=== PATIENT | female | born 1970 | race American Indian/Alaskan Native ===

== ENCOUNTER 2017-08-04 10:37 | Observation (INO) | payer MEDICARE, MEDICAID ==
[~2017-08-04] VITALS: Ht 165.1 cm; Wt 140.0 kg
[~2017-08-04 10:37] MED LIST: IBUP-1985 PO; NITR100C6 PO; ONDA4TAB6 PO
[2017-08-04] MEDS ORDERED: normal saline 1000ML IV soln IVB ONE ×2 (11:00→12:45)
[2017-08-04 11:23] LABS: BASOPHILS % (AUTO) 0.1 % (0-1); EOSINOPHILS # (AUTO) 0.1 X10'3 (0-0.9); EOSINOPHILS % (AUTO) 1.3 % (0-6); HEMATOCRIT 40.1 % (35.0-45.0); HEMOGLOBIN 13.8 g/dl (12.0-16.0); LYMPHOCYTES # (AUTO) 1.2 X10'3 (1.1-4.8); LYMPHOCYTES % (AUTO) 15.8 % (21-51); MEAN CORPUSCULAR HEMOGLOBIN 28.1 PG (27.0-31.0); MEAN CORPUSCULAR HGB CONC 34.5 % (33.0-36.5); MEAN CORPUSCULAR VOLUME 81.6 FL (78-98); MEAN PLATELET VOLUME 8.1 FL (7.4-10.4); MONOCYTES # (AUTO) 0.8 X10'3 (0-0.9); MONOCYTES % (AUTO) 10.8 % (2-12); NEUTROPHILS # (AUTO) 5.5 X10'3 (1.8-7.7); PLATELET COUNT 192 X10'3 (140-440); RED BLOOD COUNT 4.91 X10'6 (4.20-5.60); RED CELL DISTRIBUTION WIDTH 12.5 % (11.5-14.5); WHITE BLOOD COUNT 7.6 X10'3 (4.5-11.0)
[2017-08-04 11:38] LABS: ALANINE AMINOTRANSFERASE 32 U/L (12-78); ALBUMIN 2.8 G/DL (3.4-5.0); ALBUMIN/GLOBULIN RATIO 0.6 (1.1-1.5); ALKALINE PHOSPHATASE 92 IU/L (46-116); ANION GAP 9 (8-16); ASPARTATE AMINO TRANSFERASE 14 U/L (10-37); BILIRUBIN,TOTAL 0.7 MG/DL (0.1-1.0); BLOOD UREA NITROGEN 17 MG/DL (7-18); BUN/CREATININE RATIO 28.3 (6.6-38.0); CALCIUM 8.8 MG/DL (8.5-10.1); CHLORIDE 102 MMOL/L (99-107); GLUCOSE 274 MG/DL (70-104); LIPASE 208 U/L (73-393); POTASSIUM 3.9 MMOL/L (3.5-5.1); SODIUM 136 MMOL/L (135-145); TOTAL CARBON DIOXIDE 25.2 MMOL/L (24-32); TOTAL PROTEIN 7.3 G/DL (6.4-8.2); eGFR > 90 ML/MIN
[2017-08-04 12:15] LABS: URINE HCG NEGATIVE (NEG)
[2017-08-04 12:16] LABS: CLARITY,URINE CLOUDY (Clear); COLOR,URINE YELLOW (Yellow); GLUCOSE, URINE >=1000 mg/dl (Neg); KETONES,URINE 15 mg/dl (Neg); LEUKOCYTE ESTERASE ,URINE SMALL (Neg); NITRITES, URINE POSITIVE (Neg); OCCULT BLOOD,URINE MODERATE (Neg); PH,URINE 5.5 (4.8-8.0); PROTEIN,URINE TRACE mg/dl (Neg); UROBILINOGEN,URINE 0.2 E.U/dL (0.2-1.0)
[2017-08-04 12:20] LABS: UA COLLECTION TYPE CLN CATCH MIDSTREAM
[2017-08-04 12:22] LABS: SQUAMOUS EPITHELIAL CELL,UR FEW /LPF (FEW)
[2017-08-04 12:23] LABS: BACTERIA,URINE 3+ /HPF (Neg); TRANSITIONAL EPI CELLS,URINE FEW /HPF; WBC,URINE TNTC /HPF (0-4)
[2017-08-04] MEDS ORDERED: normal saline 1000ml 1,000 ML IV ONE (12:43)
[2017-08-04] MEDS ORDERED: HYDROmorphone inj. 0.5 MG/0.5 ML DISP.SYRIN IV PRN (12:45)
[2017-08-04] MEDS ORDERED: ondansetron/PF 4mg/2ml inj IV ONE (12:45)
[2017-08-04] MEDS ORDERED: CefTRIAXone 2gm/NS 100ml IVPB 100 ML IV ONE (12:45)
[2017-08-04] MEDS ORDERED: potassium Cl 20 mEq SR tablet PO PRN ×2 (13:15)
[2017-08-04] MEDS ORDERED: HYDROcodone/acetaminophen 5mg/325mg tablet PO PRN (13:15)
[2017-08-04] MEDS ORDERED: magnesium 4gm in 100ml NS 100 ML IV PRN (13:15)
[2017-08-04] MEDS ORDERED: acetaminophen 325mg tablet PO PRN ×2 (13:15)
[2017-08-04] MEDS: K and/or MAG REPLACEMENT MC SCH (13:15)
[2017-08-04] MEDS ORDERED: ondansetron/PF 4mg/2ml inj IV PRN (13:15)
[2017-08-04] MEDS ORDERED: magnesium Cl slow-release 64mg tablet PO PRN (13:15)
[2017-08-04] MEDS ORDERED: dextrose 50%-water 50ml dispensing syringe IV PRN ×2 (13:15)
[2017-08-04] MEDS ORDERED: potassium Cl 40MEQ/NS 500ml 500 ML IV PRN ×2 (13:15)
[2017-08-04] MEDS ORDERED: glucagon, human recombinant 1mg kit SUBCUT PRN (13:15)
[2017-08-04] MEDS ORDERED: MESSAGE TO PHARMACY PO ONE (13:15)
[2017-08-04] MEDS ORDERED: HYDROcodone/acetaminophen 10/325mg tab PO PRN (13:15)
[2017-08-04] MEDS ORDERED: mag hydrox/Alum hydrox/simeth 30ml oral suspension PO PRN (13:15)
[2017-08-04] MEDS ORDERED: magnesium hydroxide 30ml (MOM) UD suspension PO PRN (13:15)
[2017-08-04] MEDS ORDERED: dextrose ORAL solution 15 GM/59 ML bottle PO PRN ×2 (13:15)
[2017-08-04] MEDS ORDERED: magnesium 2GM in 50ml NS 50 ML IV PRN (13:15)
[2017-08-04 14:05] LABS: HEMOGLOBIN A1C 10.6 % (4.5-6.2)
[2017-08-04] MEDS: normal saline 1000ml 1,000 ML IV SCH ×2 (14:06→17:14)
[2017-08-04] MEDS ORDERED: morphine 4 MG/ML inj SYRINge IV ONE (14:10)
[2017-08-04] MEDS ORDERED: morphine 4 MG/ML inj SYRINge IV SCH (14:20)
[2017-08-04] MEDS: levoFLOXACIN-Levaquin 500mg/D5 100 ML IV SCH (14:29)
[2017-08-04] MEDS ORDERED: morphine 4 MG/ML inj SYRINge IV PRN (14:35)
[2017-08-04 15:30] VITALS: BP 163/60
[2017-08-04] MEDS: ibuprofen tablet 400 MG TABLET PO PRN (20:07)
[2017-08-04] MEDS: insulin Lispro (HumaLOG) vial - multi-dose SQ SCH (20:22)
[2017-08-04] MEDS ORDERED: temazepam 15mg capsule PO PRN (21:00)
[2017-08-04] MEDS ORDERED: insulin glargine (Lantus) pen - multi-dose SQ SCH ×2 (21:00)
[2017-08-04 22:00] VITALS: BP 179/89
[2017-08-05 05:00] VITALS: BP 138/80
[2017-08-05] MEDS: ibuprofen tablet 400 MG TABLET PO PRN (05:16)
[2017-08-05] MEDS: normal saline 1000ml 1,000 ML IV SCH (05:17)
[2017-08-05 07:19] LABS: BASOPHILS % (AUTO) 0.5 % (0-1); EOSINOPHILS # (AUTO) 0.2 X10'3 (0-0.9); EOSINOPHILS % (AUTO) 2.5 % (0-6); HEMATOCRIT 36.7 % (35.0-45.0); HEMOGLOBIN 12.7 g/dl (12.0-16.0); LYMPHOCYTES % (AUTO) 27.8 % (21-51); MEAN CORPUSCULAR HEMOGLOBIN 28.3 PG (27.0-31.0); MEAN CORPUSCULAR HGB CONC 34.6 % (33.0-36.5); MEAN CORPUSCULAR VOLUME 81.7 FL (78-98); MEAN PLATELET VOLUME 8.7 FL (7.4-10.4); MONOCYTES # (AUTO) 1.1 X10'3 (0-0.9); MONOCYTES % (AUTO) 14.6 % (2-12); NEUTROPHILS % (AUTO) 54.6 % (42-75); PLATELET COUNT 175 X10'3 (140-440); RED CELL DISTRIBUTION WIDTH 12.5 % (11.5-14.5); WHITE BLOOD COUNT 7.3 X10'3 (4.5-11.0)
[2017-08-05 07:36] LABS: ALANINE AMINOTRANSFERASE 30 U/L (12-78); ALBUMIN 2.4 G/DL (3.4-5.0); ALBUMIN/GLOBULIN RATIO 0.6 (1.1-1.5); ALKALINE PHOSPHATASE 78 IU/L (46-116); ANION GAP 9 (8-16); ASPARTATE AMINO TRANSFERASE 17 U/L (10-37); BILIRUBIN,TOTAL 0.5 MG/DL (0.1-1.0); BLOOD UREA NITROGEN 14 MG/DL (7-18); CALCIUM 8.2 MG/DL (8.5-10.1); CHLORIDE 104 MMOL/L (99-107); CHOL/HDL RATIO 5.5 (0.00-4.99); CHOLESTEROL 143 MG/DL (0-200); CREATININE 0.61 MG/DL (0.40-0.90); GLUCOSE 193 MG/DL (70-104); HDL CHOLESTEROL 26 MG/DL (35-60); LDL CHOLESTEROL 95 MG/DL (50-100); MAGNESIUM 1.5 MG/DL (1.5-2.4); POTASSIUM 3.7 MMOL/L (3.5-5.1); SODIUM 137 MMOL/L (135-145); TOTAL CARBON DIOXIDE 24.3 MMOL/L (24-32); TOTAL PROTEIN 6.6 G/DL (6.4-8.2); TRIGLYCERIDES 121 MG/DL (20-135); eGFR > 90 ML/MIN
[2017-08-05] MEDS: levoFLOXACIN-Levaquin 500mg/D5 100 ML IV SCH (07:53)
[2017-08-05] MEDS: K and/or MAG REPLACEMENT MC SCH (07:55)
[2017-08-05] MEDS ORDERED: enoxaparin 40mg/0.4ml syringe SQ SCH (08:00)
[2017-08-05] MEDS ORDERED: ibuprofen tablet 400 MG TABLET PO SCH (08:30)
[2017-08-05] MEDS: insulin Lispro (HumaLOG) vial - multi-dose SQ SCH (09:11)
[2017-08-05 10:00] VITALS: BP 138/78
[2017-08-05] MEDS ORDERED: LEVO500T2 PO (10:54)
== END 2017-08-05 11:45 | disposition home or self-care (01) ==
LOC: ER 10:38 → ED HOLD 13:14 → ORTHO 4S 15:15
PROVIDERS: ADMIT Family Medicine; ATTEND Family Medicine
DX: N10 Acute pyelonephritis (principal); E11.9 Type 2 diabetes mellitus without complications; E03.9 Hypothyroidism, unspecified; G47.33 Obstructive sleep apnea (adult) (pediatric); K86.1 Other chronic pancreatitis; K76.0 Fatty (change of) liver, not elsewhere classified; E66.9 Obesity, unspecified; A41.9 Sepsis, unspecified organism; I25.10 Atherosclerotic heart disease of native coronary artery without angina pectoris; M32.9 Systemic lupus erythematosus, unspecified
CPT/HCPCS: 36415; 76775; 80053; 80061; 81001; 81025; 82948; 83690; 83735; 85025; 87070; 87077; 87088; 87186; 96361; 96365; 96366; 96368; 96372; 96375; 99285; G0378; J0696; J1650; J1815; J1956; J2270; J2405; J7030; 83036

== ENCOUNTER 2017-10-23 14:19 | Emergency (ER) | payer MEDICARE, MEDICAID ==
[~2017-10-23] VITALS: Ht 157.5 cm; Wt 150.0 kg
[~2017-10-23 14:19] MED LIST changes: -NITR100C6 PO; -ONDA4TAB6 PO
[2017-10-23 15:16] VITALS: BP 168/97
[2017-10-23] MEDS ORDERED: ondansetron/PF 4mg/2ml inj IV ONE (15:30)
[2017-10-23] MEDS ORDERED: normal saline 1000ML IV soln IVB ONE (15:30)
[2017-10-23 15:44] LABS: BASOPHILS % (AUTO) 0.6 % (0-1); EOSINOPHILS # (AUTO) 0.2 X10'3 (0-0.9); HEMATOCRIT 42.8 % (35.0-45.0); HEMOGLOBIN 14.5 g/dl (12.0-16.0); LYMPHOCYTES # (AUTO) 2.5 X10'3 (1.1-4.8); LYMPHOCYTES % (AUTO) 30.4 % (21-51); MEAN CORPUSCULAR HEMOGLOBIN 27.7 PG (27.0-31.0); MEAN CORPUSCULAR HGB CONC 33.9 % (33.0-36.5); MEAN CORPUSCULAR VOLUME 81.9 FL (78-98); MEAN PLATELET VOLUME 8.2 FL (7.4-10.4); MONOCYTES # (AUTO) 0.7 X10'3 (0-0.9); NEUTROPHILS # (AUTO) 4.9 X10'3 (1.8-7.7); PLATELET COUNT 252 X10'3 (140-440); RED BLOOD COUNT 5.23 X10'6 (4.20-5.60); WHITE BLOOD COUNT 8.3 X10'3 (4.5-11.0)
[2017-10-23 15:58] LABS: ALANINE AMINOTRANSFERASE 28 U/L (12-78); ALBUMIN 3.3 G/DL (3.4-5.0); ALBUMIN/GLOBULIN RATIO 0.8 (1.1-1.5); ALKALINE PHOSPHATASE 104 IU/L (46-116); ANION GAP 10 (8-16); ASPARTATE AMINO TRANSFERASE 13 U/L (10-37); BILIRUBIN,TOTAL 0.5 MG/DL (0.1-1.0); BLOOD UREA NITROGEN 14 MG/DL (7-18); BUN/CREATININE RATIO 24.6 (6.6-38.0); CALCIUM 8.9 MG/DL (8.5-10.1); CHLORIDE 103 MMOL/L (99-107); CREATININE 0.57 MG/DL (0.40-0.90); GLUCOSE 202 MG/DL (70-104); LIPASE 269 U/L (73-393); POTASSIUM 3.8 MMOL/L (3.5-5.1); SODIUM 137 MMOL/L (135-145); TOTAL CARBON DIOXIDE 23.7 MMOL/L (24-32); TOTAL PROTEIN 7.7 G/DL (6.4-8.2); eGFR > 90 ML/MIN
[2017-10-23] MEDS ORDERED: ONDA4TAB6 PO (16:28)
[2017-10-23 16:41] LABS: URINE HCG NEGATIVE (NEG)
[2017-10-23 16:42] LABS: CLARITY,URINE CLOUDY (Clear); COLOR,URINE YELLOW (Yellow); GLUCOSE, URINE >=1000 mg/dl (Neg); KETONES,URINE TRACE mg/dl (Neg); LEUKOCYTE ESTERASE ,URINE NEGATIVE (Neg); NITRITES, URINE POSITIVE (Neg); OCCULT BLOOD,URINE TRACE-INTACT (Neg); PH,URINE 5.5 (4.8-8.0); PROTEIN,URINE TRACE mg/dl (Neg); UROBILINOGEN,URINE 0.2 E.U/dL (0.2-1.0)
[2017-10-23 16:47] LABS: UA COLLECTION TYPE CLN CATCH MIDSTREAM
[2017-10-23 16:48] LABS: BACTERIA,URINE 2+ /HPF (Neg); MUCUS STRANDS FEW /LPF (Neg); RBC,URINE 0-2 /HPF (0-2); SQUAMOUS EPITHELIAL CELL,UR MODERATE /LPF (FEW); WBC,URINE 30-50 /HPF (0-4)
== END 2017-10-23 17:14 | disposition home or self-care (01) ==
LOC: ER 14:20
DX: R10.13 Epigastric pain (principal); R11.2 Nausea with vomiting, unspecified; I25.10 Atherosclerotic heart disease of native coronary artery without angina pectoris; E11.9 Type 2 diabetes mellitus without complications; E03.9 Hypothyroidism, unspecified; Z88.6 Allergy status to analgesic agent; Z88.1 Allergy status to other antibiotic agents; Z88.2 Allergy status to sulfonamides
CPT/HCPCS: 36415; 80053; 81001; 81025; 82948; 83690; 85025; 87077; 87088; 87186; 96361; 96374; 99284; J2405; J7030

== ENCOUNTER 2021-01-31 19:04 | Emergency (ER) | payer MEDICARE, MEDICAID ==
[~2021-01-31] VITALS: Ht 165.1 cm; Wt 131.8 kg
[~2021-01-31 19:04] MED LIST changes: +AMYL1CAP57 PO; +ASPI81TA52 PO; +ATOR20TA PO; +FLUC200T PO; +HYDR-4353 PO; -IBUP-1985 PO; +INSU100C10 SQ; +INSU100V12 SQ; +LEVO137T24 PO; +METF1000 PO; +METO-467 PO; +NITR0.4T SL; +OXYC-145 PO; +[UNRECOGNIZED DRUG - CODE] PO
--- NOTE | 2021-01-31 19:22 | NUR ---
WENT TO CT WITH THE PT. SHE IS NOW IN ROOM 13 AND ON MONITORS, WITH MD AT BS AND RNS.
[2021-01-31 19:24] LABS: BASOPHILS # (AUTO) 0.1 X10'3 (0-0.2); EOSINOPHILS # (AUTO) 0.1 X10'3 (0-0.9); EOSINOPHILS % (AUTO) 1.7 % (0-6); HEMOGLOBIN 14.9 g/dl (12.0-16.0); LYMPHOCYTES # (AUTO) 2.9 X10'3 (1.1-4.8); LYMPHOCYTES % (AUTO) 33.2 % (21-51); MEAN CORPUSCULAR HEMOGLOBIN 29.7 PG (27.0-31.0); MEAN CORPUSCULAR HGB CONC 33.1 g/dL (33.0-36.5); MEAN CORPUSCULAR VOLUME 89.6 FL (78-98); MEAN PLATELET VOLUME 8.6 FL (7.4-10.4); MONOCYTES # (AUTO) 0.7 X10'3 (0-0.9); MONOCYTES % (AUTO) 7.9 % (2-12); NEUTROPHILS % (AUTO) 56.2 % (42-75); PLATELET COUNT 243 X10'3 (140-440); RED BLOOD COUNT 5.02 X10'6 (4.20-5.60); RED CELL DISTRIBUTION WIDTH 13.1 % (11.5-14.5); WHITE BLOOD COUNT 8.9 X10'3 (4.5-11.0)
[2021-01-31] MEDS ORDERED: insulin regular, human 10 units/0.1 ml syringe SQ ONE (19:30)
[2021-01-31] MEDS ORDERED: insulin regular, human 10 units/0.1 ml syringe IV ONE (19:30)
[2021-01-31] MEDS ORDERED: normal saline 1000ML IV soln IVB ONE (19:30)
[2021-01-31 19:39] LABS: PARTIAL THROMBOPLASTIN TIME 24 SECONDS (22-32)
[2021-01-31 19:43] LABS: ALANINE AMINOTRANSFERASE 26 U/L (12-78); ALBUMIN 3.5 G/DL (3.4-5.0); ALBUMIN/GLOBULIN RATIO 0.9 (1.1-1.5); ALKALINE PHOSPHATASE 104 IU/L (46-116); ANION GAP 10 (8-16); ASPARTATE AMINO TRANSFERASE 9 U/L (10-37); BILIRUBIN,TOTAL 0.4 MG/DL (0.1-1.0); BLOOD UREA NITROGEN 18 MG/DL (7-18); BUN/CREATININE RATIO 16.5 (6.6-38.0); CALCIUM 8.9 MG/DL (8.5-10.1); CHLORIDE 102 MMOL/L (99-107); CREATININE 1.09 MG/DL (0.40-0.90); POTASSIUM 4.6 MMOL/L (3.5-5.1); SODIUM 136 MMOL/L (135-145); TOTAL CARBON DIOXIDE 24.4 MMOL/L (24-32); TOTAL PROTEIN 7.3 G/DL (6.4-8.2); eGFR 53 ML/MIN
[2021-01-31 19:50] LABS: GLUCOSE 521 MG/DL (70-104)
[2021-01-31] MEDS ORDERED: metoclopramide 5 mg/ml inj IV ONE (19:50)
[2021-01-31] MEDS ORDERED: diphenhydrAMINE 50 mg/ml inj IV ONE (19:50)
[2021-01-31] MEDS ORDERED: LORazepam 2 mg/ml vial IV ONE (20:05)
[2021-01-31] MEDS ORDERED: ondansetron/PF 4mg/2ml inj IV PRN (20:40)
[2021-01-31] MEDS ORDERED: magnesium Cl slow-release 64mg tablet PO PRN (20:40)
[2021-01-31] MEDS ORDERED: normal saline 1000ml 1,000 ML IV SCH (20:40)
[2021-01-31] MEDS ORDERED: potassium Cl 20 mEq SR tablet PO PRN ×2 (20:40)
[2021-01-31] MEDS ORDERED: magnesium 2GM in 50ml NS 50 ML IV PRN (20:40)
[2021-01-31] MEDS ORDERED: potassium Cl 40MEQ/1/2NS 520ml 520 ML IV PRN ×2 (20:40)
[2021-01-31] MEDS ORDERED: magnesium 4gm in 100ml NS 100 ML IV PRN (20:40)
[2021-01-31] MEDS ORDERED: acetaminophen 325mg tablet PO PRN (20:40)
[2021-01-31] MEDS ORDERED: glucagon, human recombinant 1mg kit SUBCUT PRN (20:55)
[2021-01-31] MEDS ORDERED: dextrose 50%-water 50ml dispensing syringe IV PRN ×2 (20:55)
[2021-01-31] MEDS ORDERED: MESSAGE TO PHARMACY PO ONE (20:55)
[2021-01-31] MEDS ORDERED: dextrose ORAL solution 15 GM/59 ML bottle PO PRN ×2 (20:55)
[2021-01-31] MEDS ORDERED: insulin Lispro (HumaLOG) vial - multi-dose SQ SCH (20:55)
[2021-01-31] MEDS ORDERED: insulin glargine (Lantus) pen - multi-dose SQ SCH (21:00)
[2021-01-31 21:43] LABS: LIPASE 196 U/L (73-393)
--- NOTE | 2021-01-31 22:00 | NUR ---
PT STATES TAKES 300 UNITS OF INSULIN GLARGINE TWICE DAILY.
--- NOTE | 2021-01-31 22:26 | NUR ---
PT STATES WANTING TO LEAVE. PT STATES TIA SYMPTOMS ARE RESOLIVING WITH RIT EYE VISION RETURNING, HEADACHE IMPROVING AND LEFT LEG NUMBNESS RECEEDING. DR HOGUE CONTACTED AND WILL COME TALK TO PT.
[2021-01-31 22:27] VITALS: BP 150/86
--- NOTE | 2021-01-31 22:33 | NUR ---
PT SIGNED AMA FORM AFTER CONVERSATION WITH DR HOGUE.
[2021-02-01] MEDS ORDERED: PERFLUTREN PROTEIN-A MICROSPHR (Optison) 0.22 MG/ML 3ML VIAL IV ONE (08:00)
[2021-02-01] MEDS ORDERED: K and/or MAG REPLACEMENT MC SCH (08:00)
== END 2021-01-31 22:47 | disposition left against medical advice (07) ==
LOC: ER 19:04 → UNDOADMIN 20:49 → ED HOLD 20:49 → UNDODISIN 22:00
DX: G62.9 Polyneuropathy, unspecified (principal); R51.9 Headache, unspecified; I25.10 Atherosclerotic heart disease of native coronary artery without angina pectoris; E11.9 Type 2 diabetes mellitus without complications; E03.9 Hypothyroidism, unspecified; Z86.14 Personal history of Methicillin resistant Staphylococcus aureus infection; Z56.0 Unemployment, unspecified; Z88.2 Allergy status to sulfonamides; Z88.5 Allergy status to narcotic agent; Z88.8 Allergy status to other drugs, medicaments and biological substances; Z79.82 Long term (current) use of aspirin; Z79.899 Other long term (current) drug therapy
CPT/HCPCS: 36415; 70450; 71045; 80053; 82948; 83036; 83690; 85025; 85610; 85730; 86885; 86900; 86901; 93005; 96361; 96374; 96375; 99285; J1200; J1815; J2060; J2765; J7030; G0378

== ENCOUNTER 2023-06-07 07:13 | Emergency (ER) | payer MEDICARE, MEDICAID ==
[~2023-06-07] VITALS: Ht 165.1 cm; Wt 140.9 kg
[~2023-06-07 07:13] MED LIST changes: +[UNRECOGNIZED DRUG - CODE] PO; -[UNRECOGNIZED DRUG - CODE] PO
[2023-06-07 07:21] VITALS: BP 182/75; PULSE 74; RESP 18; O2SAT 100
[2023-06-07 08:11] VITALS: TEMP 98.4
== END 2023-06-07 08:15 | disposition home or self-care (01) ==
LOC: ER 07:13
DX: E11.65 Type 2 diabetes mellitus with hyperglycemia (principal); E03.9 Hypothyroidism, unspecified; I25.10 Atherosclerotic heart disease of native coronary artery without angina pectoris; Z86.73 Personal history of transient ischemic attack (TIA), and cerebral infarction without residual deficits
CPT/HCPCS: 82948; 93005; 99283; 99284

== ENCOUNTER 2024-10-08 18:35 | Emergency (ER) | payer MEDICARE, MEDICAID ==
[~2024-10-08] VITALS: Ht 165.1 cm; Wt 136.4 kg
[~2024-10-08 18:35] MED LIST changes: +AMYL1CAP56 PO; -AMYL1CAP57 PO
[2024-10-08 19:08] VITALS: BP 197/77; PULSE 90; O2SAT 97
[2024-10-08 19:35] LABS: BASOPHILS % (AUTO) 0.4 % (0-1); EOSINOPHILS # (AUTO) 0.2 X10'3 (0-0.9); EOSINOPHILS % (AUTO) 2.5 % (0-6); HEMATOCRIT 41.4 % (35.0-45.0); HEMOGLOBIN 13.9 g/dl (12.0-16.0); LYMPHOCYTES # (AUTO) 1.1 X10'3 (1.1-4.8); LYMPHOCYTES % (AUTO) 10.9 % (21-51); MEAN CORPUSCULAR HEMOGLOBIN 29.1 PG (27.0-31.0); MEAN CORPUSCULAR HGB CONC 33.6 g/dL (33.0-36.5); MEAN CORPUSCULAR VOLUME 86.7 FL (78-98); MEAN PLATELET VOLUME 8.1 FL (7.4-10.4); MONOCYTES # (AUTO) 0.6 X10'3 (0-0.9); MONOCYTES % (AUTO) 5.8 % (2-12); NEUTROPHILS % (AUTO) 80.4 % (42-75); PLATELET COUNT 214 X10'3 (140-440); RED BLOOD COUNT 4.78 X10'6 (4.20-5.60); RED CELL DISTRIBUTION WIDTH 13.4 % (11.5-14.5); WHITE BLOOD COUNT 9.9 X10'3 (4.5-11.0)
[2024-10-08 19:52] LABS: ALANINE AMINOTRANSFERASE 35 U/L (12-78); ALBUMIN 3.1 G/DL (3.4-5.0); ALBUMIN/GLOBULIN RATIO 0.8 (1.1-1.5); ALKALINE PHOSPHATASE 140 IU/L (46-116); ANION GAP 8 (8-16); ASPARTATE AMINO TRANSFERASE 33 U/L (10-37); BILIRUBIN,TOTAL 0.7 MG/DL (0.1-1.0); BLOOD UREA NITROGEN 12 MG/DL (7-18); BUN/CREATININE RATIO 18.5 (10.0-20.0); CALCIUM 8.5 MG/DL (8.5-10.1); CHLORIDE 104 MMOL/L (99-107); CREATININE 0.65 MG/DL (0.40-0.90); GLUCOSE 58 MG/DL (70-104); LIPASE 11 U/L (16-77); SODIUM 140 MMOL/L (135-145); TOTAL CARBON DIOXIDE 27.6 MMOL/L (24-32); TOTAL PROTEIN 7.2 G/DL (6.4-8.2); eCRCL 88 ML/MIN; eGFR > 90 ML/MIN
[2024-10-08 21:04] LABS: BILIRUBIN,URINE NEGATIVE (Neg); CLARITY,URINE CLEAR (Clear); COLOR,URINE YELLOW (Yellow); GLUCOSE, URINE NEGATIVE (Neg); KETONES,URINE NEGATIVE (Neg); LEUKOCYTE ESTERASE ,URINE NEGATIVE (Neg); NITRITES, URINE POSITIVE (Neg); OCCULT BLOOD,URINE TRACE-INTACT (Neg); PROTEIN,URINE >=300 mg/dl (Neg)
[2024-10-08 21:05] LABS: URINE HCG NEGATIVE (NEG)
[2024-10-08 21:08] LABS: UA COLLECTION TYPE CLN CATCH MIDSTREAM
[2024-10-08 21:10] LABS: BACTERIA,URINE 4+ /HPF (Neg); RBC,URINE 0-2 /HPF (0-2)
[2024-10-08 21:11] LABS: SQUAMOUS EPITHELIAL CELL,UR FEW /LPF (FEW)
[2024-10-08] MEDS ORDERED: ONDA-243 PO (23:43)
[2024-10-08] MEDS ORDERED: CEPH-585 PO (23:43)
--- NOTE | 2024-10-08 23:44 | Physician Documentation ---
History of Present Illness ~ Chief Complaint: Urinary Symptoms Stated Complaint: UTI Time Seen by MD: 23:20 OK to notify your PCP?: Yes Primary Medical Doctor: Lora Tavares Source: patient Mode of Arrival: POV Exam Limitations: no limitations HPI Valeria is a 54-year-old female who reports having right flank pain for a while. Today she started having some vomiting, constant right flank pain and reports having fevers at home. She took some ibuprofen about 4 hours prior to arrival. She has a history of chronic kidney infections and states that this feels exactly like her normal ones. She denies any history of kidney stones. Medication Reconciliation Allergies: Coded Allergies: codeine (Verified Allergy, Unknown, 06/07/23) sulfamethoxazole (Unverified Allergy, Unknown, 06/07/23) trimethoprim (Unverified Allergy, Unknown, 06/07/23) morphine (Verified Adverse Reaction, Intermediate, VOMITING, HEADACHES, 06/07/23) Scheduled Amylase/Lipase/Protease (Creon Dr 24,000 Units Capsule), 1 EACH PO CC, (Reported) Aspirin (Aspirin EC), 1 TABLET PO DAILY, (Reported) Atorvastatin Calcium (Lipitor), 1 TAB PO DAILY, (Reported) Cephalexin*Monohydrate* (Keflex*), 1 CAP PO Q8H Hydrocodone Bit/Acetaminophen ([place] 10-325 Tablet), 1 TAB PO Q6H, (Reported) Ibuprofen (Ibuprofen Ib), 800 MG PO TID, (Reported) Insulin Detemir (Levemir), 10 UNIT SQ HS, (Reported) Levothyroxine Sodium (Synthroid), 1 TAB PO DAILY, (Reported) Metformin Hcl* (Glucophage*), 2 TAB PO DAILY, (Reported) Metoprolol Tartrate (Lopressor), 0.5 TAB PO Q12H, (Reported) Oxycodone HCl/Acetaminophen (Percocet 5-325 mg Tablet), 1 TAB PO Q6H, (Reported) Scheduled PRN Fluconazole (Diflucan), 1 TAB PO DAILY PRN for prn, (Reported) Nitroglycerin (Nitrostat), 0.4 MG SL PRN PRN for chest pain, (Reported) ONDANSETRON ODT 4mg tablet (Ondansetron Odt), 4 MG PO Q6H PRN for nausea/vomiting Miscellaneous Medications Insulin Lispro (Humalog), 20 UNITS SQ, (Reported) Past Medical History Past Medical History: CVA/TIA/Stroke, Coronary Artery Disease, Myocardial Infarction, Sleep Apnea, Pancreatitis, UTI, Diabetes, Hypothyroidism, MRSA Abscess Past Surgical History: orthopedic surgeries Alcohol Use: None Drug Use: none Lives In: Home Occupation: unemployed Review of Systems All Other Systems at this time: Reviewed and Negative Physical Exam Vital Signs: RN Vital Signs have been reviewed: Yes, Temperature: 100.0, Source: Temporal, Heart Rate: 90, Respiratory Rate: 24, BP: 197/77, Pulse Oximetry: 97, Weight: 136.360 Pulse Oximetry Reflects: adequate oxygenation Physical Exam General: Alert, mild apparent distress. HEENT: PERRL, EOMI, no injection, moist mucous membranes. Neck: Full range of motion. Respiratory: Lungs clear, no respiratory distress. Chest: No accessory muscle use. Cardiovascular: Regular rate and rhythm, no murmurs. Gastrointestinal: Soft, nontender, nondistended. Bowels sounds present. Back: Right CVA tenderness. No CVA tenderness to the left flank. Extremities: Normal range of motion, no deformity. Neurologic: Oriented x4. Psychiatric: Normal mood and affect. Skin: Normal color, warm and dry. No edema, no ecchymosis. Progress Results/Orders Reviewed/noted all lab results: Yes Results/Orders Orders - MELINDA YANGP Saline Lock (10/08/24 ) Completed Orders - MELINDA YANG SYSTEM OPERATOR Ceftriaxone 2gm/D5w 50ml Bag (Rocephin 2 (10/08/24 23:45) Hydrocodone/Apap 10/325 (Glencross 10/325mg (10/08/24 23:45) Ondansetron Inj. (Zofran 4mg/2ml Vial) (10/08/24 23:45) Medications Received in ER Medications (Trade) Dose Ordered Sig/Chelle Route PRN Reason Start Time Stop Time Status Last Admin Dose Admin Ceftriaxone Sodium/Dextrose 50 ml @ 100 mls/hr ONCE ONCE IV 10/08/24 23:45 10/09/24 00:14 DC 10/09/24 00:15 100 MLS/HR (Gl[place]ross 10/325mg tab) 1 tab ONCE ONCE PO 10/08/24 23:45 10/08/24 23:49 DC 10/09/24 00:15 1 TAB (Zofran 4mg/2ml vial) 4 mg ONCE ONCE IV 10/08/24 23:45 10/08/24 23:49 DC 10/09/24 00:14 4 MG Vital Signs 10/08/24 10/08/24 10/09/24 19:08 23:48 00:15 Temp 100.0 100.0 Pulse 90 Resp 24 22 B/P (MAP) 197/77 Pulse Ox 97 Laboratory Tests Test 10/08/24 19:19 10/08/24 20:40 White Blood Count 9.9 Red Blood Count 4.78 Hemoglobin 13.9 Hematocrit 41.4 Mean Corpuscular Volume 86.7 Mean Corpuscular Hemoglobin 29.1 Mean Corpuscular Hemoglobin Concent 33.6 Red Cell Distribution Width 13.4 Platelet Count 214 Mean Platelet Volume 8.1 Neutrophils (%) (Auto) 80.4 H Lymphocytes (%) (Auto) 10.9 L Monocytes (%) (Auto) 5.8 Eosinophils (%) (Auto) 2.5 Basophils (%) (Auto) 0.4 Neutrophils # (Auto) 8.0 H Lymphocytes # (Auto) 1.1 Monocytes # (Auto) 0.6 Eosinophils # (Auto) 0.2 Basophils # (Auto) 0.0 CBC Comment Sodium Level 140 Potassium Level 4.0 Chloride Level 104 Carbon Dioxide Level 27.6 Anion Gap 8 Blood Urea Nitrogen 12 Creatinine 0.65 Estimated GFR/1.73 m2 > 90 BUN/Creatinine Ratio 18.5 Glucose Level 58 L Calcium Level 8.5 Total Bilirubin 0.7 Aspartate Amino Transf (AST/SGOT) 33 Alanine Aminotransferase (ALT/SGPT) 35 Alkaline Phosphatase 140 H Total Protein 7.2 Albumin 3.1 L Globulin 4.1 Albumin/Globulin Ratio 0.8 L Lipase 11 L Chemistry Comments Urine Specimen Description Cln catch midstream Urine Color Yellow Urine Clarity Clear Urine pH 7.0 Urine Specific [place] 1.025 Urine Protein >=300 H Urine Glucose (UA) Negative Urine Ketones Negative Urine Occult Blood Trace-intact Urine Nitrite Positive H Urine Bilirubin Negative Urine Urobilinogen 2.0 H Urine Leukocyte Esterase Negative Urine RBC 0-2 Urine WBC 10-20 H Urine Squamous Epithelial Cells Few Urine Bacteria 4+ Urine Culture Indicated Indicated Volume Urine Centrifuged 10 ml Urine HCG, Qualitative Negative Urine Comment Microbiology Date/Time Source Procedure Growth Status 10/08/24 21:11 Urine Clean Catch Midstream Urine Culture - Preliminary Culture received. Resulted Medical Decision Making Additional info obtained from: old records Findings Valeria is a 54-year-old female with right flank pain. She has a history of having kidney infections and states that this feels exactly the same. She has no history of kidney stones and has been having constant pain and a couple episodes of vomiting since today. She took 800 mg of ibuprofen about 4 hours prior to arrival. She has a history of needing hospitalizations for IV antibiotics with her kidney infections. She denies having any urinary symptoms such as increased frequency, burning with urination or blood in the urine. Her physical exam reveals CVA tenderness on the right side but rest of her physical exam is normal. Her CBC is negative for infection or anemia. Her CMP reveals normal kidney function and no electrolyte abnormalities. Her lipase is within normal limits. Her urinalysis is positive for proteins, nitrites, urobilirubin and white blood cells which indicates a urinary tract infection. Her urinalysis is negative for occult blood or RBCs which would be indicative of a kidney stone. Her urine has been sent for culture. Using shared decision-making with the patient, she has opted not to do a CT scan to look for kidney stone in her right kidney. When reviewing her records she was last seen in October of 2023 and her urine culture at that time was resistant to ciprofloxacin, gentamicin, levofloxacin, tobramycin and Augmentin. She is allergic to Bactrim. I consulted with Dr. Bedolla regarding the treatment for this patient and possible need for hospitalization. He recommended attempting outpatient treatment 1st and if she fails outpatient treatment then she may need admission. Due to the multidrug resistant urine culture 11 months ago and her allergies the most appropriate outpatient treatment would be a 1 dose of Rocephin 2 g IV and Keflex p.o. 500 mg t.i.d. the Keflex prescription has been sent to her pharmacy as well as a prescription for Zofran. We have provided her with Zofran and a Glencross for her pain relief and nausea while in the department. She has a pain management plan already in place and is unable to fill any narcotic pain medications for the next 2 days. She has been educated to increase her water intake. She has been given strict return instructions that if this infection is not getting better or gets worse that she needs to return back to an emergency department and receive IV antibiotics and possible admission. She agrees with this plan and understan ds the possible complications including sepsis should this get worse in the outpatient setting. She is currently not septic or requiring continuous IV antibiotics. She needs to follow up with her primary care provider in the next 3 days and have a urine checked at the end of her antibiotic course to see if the infection has cleared. She should return back here for any new or worsening symptoms. Urinary Diff Dx:Considerations: Include: Appendicitis, Cholelithiasis, Musculoskeletal pain, Renal failure, Urinary Obstruction, Urolithiasis, Urinary retention Departure Disposition: HOME / SELF CARE / HOMELESS Impression: Primary Impression: Acute pyelonephritis Condition: Stable Discharge Instructions: Pyelonephritis, Adult Additional Instructions: Take all antibiotics as prescribed. Return back here for any new or worsening symptoms. Drink plenty of fluids. We have cultured your urine which takes about 3 days to result and will call you if we need to change your oral antibiotic. Referrals: NO PRIMARY CARE PROVIDER (PCP) Prescriptions ONDANSETRON ODT 4mg tablet (ONDANSETRON ODT) 4 Mg Tab.rapdis 4 MG PO Q6H PRN for nausea/vomiting for 4 Days, #16 TAB Prov: MELINDA YANG 10/08/24 Cephalexin*Monohydrate* (Keflex*) 500 Mg Capsule 1 CAP PO Q8H for 10 Days, #30 CAP Prov: MELINDA YANG 10/08/24 Education Educated: Patient Educated regarding: diagnosis, treatment, prognosis, need for follow up Signature Scribe Signature: . Attestation: Scribed for Melinda Yang by Melinda Yang - BI . 10/09/24 00:49 MELINDA YANG October 08, 2024 23:44
[2024-10-08 23:48] VITALS: TEMP 100
[2024-10-09] MEDS: ondansetron/PF 4mg/2ml inj IV ONE (00:14)
[2024-10-09 00:15] VITALS: RESP 22
[2024-10-09] MEDS: HYDROcodone/acetaminophen 10/325mg tab PO ONE (00:15)
[2024-10-09] MEDS: CefTRIAXone 2gm/D5W 50ml BAG 50 ML IV ONE (00:15)
== END 2024-10-09 00:54 | disposition home or self-care (01) ==
LOC: ER 18:36
DX: N10 Acute pyelonephritis (principal); E03.9 Hypothyroidism, unspecified; E11.9 Type 2 diabetes mellitus without complications; G47.30 Sleep apnea, unspecified; I25.10 Atherosclerotic heart disease of native coronary artery without angina pectoris; Z86.73 Personal history of transient ischemic attack (TIA), and cerebral infarction without residual deficits; Z88.1 Allergy status to other antibiotic agents; Z88.2 Allergy status to sulfonamides; Z88.5 Allergy status to narcotic agent
CPT/HCPCS: 36415; 80053; 81001; 81025; 83690; 85025; 87077; 87088; 87186; 96365; 96375; 99284; J0696; J2405